=== PATIENT | male | born 1975 | race Caucasian/White ===

== ENCOUNTER 2020-03-03 12:56 | Inpatient (IN) ==
[2020-03-03 13:44] LABS: Basophils % 0.4 %; Eosinophils # 0.2 K/mcL (0.0-0.6); Eosinophils % 2.3 %; Hematocrit 49.6 % (37.5-50.1); Hemoglobin 15.9 g/dL (12.9-16.9); Immature Granulocytes % 0.6 % (0-4); Lymphocytes # 2.5 K/mcL (0.6-4.6); Lymphocytes % 35.7 %; Mean Corpuscular HGB Conc 32.1 g/dL (31.6-35.5); Mean Corpuscular Volume 90.5 fL (83.0-100.0); Mean Platelet Volume 10.4 fL (9.4-12.4); Monocytes # 0.3 K/mcL (0.0-1.3); Monocytes % 4.8 %; Neutrophils # 3.9 K/mcL (1.6-8.9); Platelet Count 314 K/mcL (140-400); Red Blood Count 5.48 M/mcL (4.19-5.50); Red Cell Distribution Width 12.4 % (11.5-14.5); Segmented Neutrophils % 56.2 %; White Blood Count 6.9 K/mcL (4.3-11.1)
[2020-03-03 13:46] LABS: Bilirubin,Urine Negative (Negative); Blood,Urine Negative (Negative); Clarity,Urine Cloudy (Clear); Color,Urine Yellow (Yellow); Glucose,Urine (UA) Normal (Normal); Ketones,Urine Negative (Negative); Leukocyte Esterase,Urine Negative (Negative); Nitrite,Urine Negative (Negative); Protein,Urine Negative (Neg-Trace); Urobilinogen,Urine Normal (Normal)
[2020-03-03 13:49] LABS: Bacteria,Urine None Seen per hpf (None-Few); Hyaline Casts,Urine None Seen per lpf (None-Few); RBC,Urine 0-3 per hpf (0-3); Squamous Epithelial Cell,Urine Moderate per lpf (None-Few); WBC,Urine 0-3 per hpf (0-3)
[2020-03-03 13:54] LABS: Amphetamine Screen,Urine Positive ng/mL (Cutoff=1000); Barbiturate Screen,Urine Negative ng/mL (Cutoff=200); Benzodiazepines Screen,Urine Negative ng/mL (Cutoff=200); Cannabinoid Screen,Urine Positive ng/mL (Cutoff = 50); Cocaine Screen,Urine Negative ng/mL (Cutoff= 300); Opiate Screen,Urine Negative ng/mL (Cutoff=300); Phencyclidine Screen,Urine Negative ng/mL (Cutoff=25)
[2020-03-03 14:05] LABS: Acetaminophen < 10 mcg/mL (10-20); BUN/Creatinine Ratio 13 (6-26); Blood Urea Nitrogen 10 mg/dL (6-20); Calcium 9.4 mg/dL (8.6-10.3); Carbon Dioxide 31 mEq/L (23-29); Chloride 102 mEq/L (98-107); Chol/HDL Ratio 6.9 (0-4.9); Cholesterol 234 mg/dL (< 200); Ethanol < 10 mg/dL (Less than 10); Glucose 125 mg/dL (70-105); HDL Cholesterol 34 mg/dL (40-59); LDL Cholesterol,Calculated 165 mg/dL (0-99); Osmolality,Calculated 289 (280-300); Potassium 3.8 mEq/L (3.5-5.1); Salicylate < 2.5 mg/dL (15.0-30.0); Sodium 139 mEq/L (136-145); Triglycerides 176 mg/dL (< 150); eGFR For African Americans > 60 (> 60); eGFR For Non-African Americans > 60 (> 60)
[2020-03-03 14:29] LABS: Estimated Average Glucose 123 mg/dl
[2020-03-03] MEDS ORDERED: *HR* LORazepam 2 MG/ML VIAL IM PRN (16:09)
[2020-03-03] MEDS ORDERED: traZODone 50 MG TABLET PO PRN (16:09)
[2020-03-03] MEDS ORDERED: *HR* LORazepam 1 MG TABLET PO PRN (16:09)
[2020-03-03] MEDS ORDERED: hydrOXYzine pamoate 25 MG CAPSULE PO PRN (16:09)
[2020-03-03] MEDS ORDERED: MOM Conc 10 ML UD.LIQ PO PRN (16:09)
[2020-03-03] MEDS ORDERED: Haloperidol Lactate 5 MG/ML VIAL IM PRN (16:09)
[2020-03-03] MEDS ORDERED: haloperidoL 5 MG TABLET PO PRN (16:09)
[2020-03-04] MEDS: Ibuprofen 400 MG TABLET PO PRN ×2 (04:33→21:07)
[2020-03-04] MEDS: Perphenazine 2 MG TABLET PO SCH ×2 (15:12→20:34)
[2020-03-04] MEDS ORDERED: Perphenazine 2 MG TABLET PO SCH (21:00)
[2020-03-05] MEDS: Perphenazine 2 MG TABLET PO SCH (08:01)
[2020-03-05 08:54] VITALS: BP 120/79
[2020-03-05] MEDS ORDERED: FLUoxetine 20 MG CAPSULE PO SCH (09:00)
[2020-03-05] MEDS ORDERED: FLUoxetine 20 MG CAPSULE PO STA (10:06)
[2020-03-06] MEDS ORDERED: FLUoxetine 20 MG CAPSULE PO SCH (09:00)
== END 2020-03-05 12:35 | disposition home or self-care (01) | DRG 885 ==
LOC: 1ANU 12:56 → EMEROOARM 12:56 → UNDODISIN 17:23 → 1ANU 17:23
PROVIDERS: ADMIT Psychiatry & Neurology Psychiatry; ATTEND Psychiatry & Neurology Psychiatry

== ENCOUNTER 2022-07-20 18:23 | Inpatient (IN) ==
[2022-07-20] MEDS ORDERED: Ondansetron ODT 4 MG TAB.RAPDIS SL ONE (19:32)
[2022-07-20 19:46] LABS: Basophils % 0.3 %; Eosinophils # 0.1 K/mcL (0.0-0.6); Eosinophils % 0.6 %; Hematocrit 46.2 % (37.5-50.1); Hemoglobin 15.2 g/dL (12.9-16.9); Immature Granulocytes % 0.4 % (0-4); Lymphocytes # 3.1 K/mcL (0.6-4.6); Lymphocytes % 29.4 %; Mean Corpuscular HGB Conc 32.9 g/dL (31.6-35.5); Mean Corpuscular Hemoglobin 29.3 pg (28.0-33.3); Monocytes # 0.6 K/mcL (0.0-1.3); Monocytes % 5.7 %; Neutrophils # 6.8 K/mcL (1.6-8.9); Platelet Count 205 K/mcL (140-400); Red Blood Count 5.19 M/mcL (4.19-5.50); Red Cell Distribution Width 12.7 % (11.5-14.5); Segmented Neutrophils % 63.6 %; White Blood Count 10.6 K/mcL (4.3-11.1)
[2022-07-20 20:03] LABS: Acetaminophen < 10 mcg/mL (10-20); BUN/Creatinine Ratio 11 (6-26); Blood Urea Nitrogen 11 mg/dL (6-20); Calcium 9.6 mg/dL (8.6-10.3); Carbon Dioxide 26 mEq/L (23-29); Chloride 105 mEq/L (98-107); Ethanol < 10 mg/dL (Less than 10); Glucose 130 mg/dL (70-105); Osmolality,Calculated 289 (280-300); Potassium 3.3 mEq/L (3.5-5.1); Salicylate < 2.5 mg/dL (15.0-30.0); Sodium 139 mEq/L (136-145)
[2022-07-20 20:09] LABS: Bilirubin,Urine Negative (Negative); Blood,Urine Negative (Negative); Clarity,Urine Clear (Clear); Color,Urine Light-Yellow (Yellow); Glucose,Urine (UA) Normal (Normal); Ketones,Urine Negative (Negative); Leukocyte Esterase,Urine Negative (Negative); Mucus,Urine Few per lpf (None-Few); Nitrite,Urine Negative (Negative); Protein,Urine 50 mg/dL (Neg-Trace); Specific Gravity,Urine 1.012 (1.010-1.025); Urobilinogen,Urine Normal (Normal); WBC,Urine 0-3 per hpf (0-3)
[2022-07-20 20:24] LABS: Amphetamine Screen,Urine Negative ng/mL (Cutoff=1000); Barbiturate Screen,Urine Negative ng/mL (Cutoff=200); Benzodiazepines Screen,Urine Negative ng/mL (Cutoff=200); Cannabinoid Screen,Urine Positive ng/mL (Cutoff = 50); Cocaine Screen,Urine Negative ng/mL (Cutoff= 300); Opiate Screen,Urine Negative ng/mL (Cutoff=300); Phencyclidine Screen,Urine Negative ng/mL (Cutoff=25)
[2022-07-21 02:29] LABS: Influenza A PCR Negative (Negative); Influenza B PCR Negative (Negative); Resp. Syncytial Virus PCR Negative (Negative)
[2022-07-21 02:30] LABS: SARS-CoV-2 by PCR (In House) Negative (Negative)
[2022-07-21] MEDS ORDERED: *HR* LORazepam 2 MG/ML VIAL IM PRN (02:35)
[2022-07-21] MEDS ORDERED: traZODone 50 MG TABLET PO PRN (02:35)
[2022-07-21] MEDS ORDERED: haloperidoL 5 MG TABLET PO PRN (02:35)
[2022-07-21] MEDS ORDERED: hydrOXYzine pamoate 25 MG CAPSULE PO PRN (02:35)
[2022-07-21] MEDS ORDERED: *HR* LORazepam 1 MG TABLET PO PRN (04:00)
[2022-07-21] MEDS ORDERED: Haloperidol Lactate 5 MG/ML VIAL IM PRN (04:00)
[2022-07-21] MEDS ORDERED: Mag Hydrox/Al Hydrox/Simeth 30 ML UDC PO PRN (08:03)
[2022-07-21] MEDS ORDERED: MOM Conc 10 ML UD.LIQ PO PRN (08:03)
[2022-07-21] MEDS: Ibuprofen 400 MG TABLET PO PRN ×2 (10:52→16:52)
[2022-07-21] MEDS: Metoprolol XL (24 HR) Succ 25 MG TAB.ER.24H PO SCH (13:08)
[2022-07-21] MEDS: Acetaminophen 325 MG TABLET PO PRN ×2 (15:17→21:12)
[2022-07-21] MEDS ORDERED: QUEtiapine Fumarate 100 MG TABLET PO SCH (21:00)
[2022-07-21 21:31] VITALS: O2SAT 97
[2022-07-22] MEDS: Metoprolol XL (24 HR) Succ 25 MG TAB.ER.24H PO SCH (08:46)
[2022-07-22] MEDS: Acetaminophen 325 MG TABLET PO PRN (08:48)
[2022-07-22 10:32] VITALS: BP 167/104; PULSE 69; TEMP 97.7
== END 2022-07-22 14:20 | disposition home or self-care (01) | DRG 885 ==
LOC: EMEROOARM 18:23 → 1ANU 07-21 03:03
PROVIDERS: ADMIT Psychiatry & Neurology Psychiatry; ATTEND Psychiatry & Neurology Psychiatry